=== PATIENT | male | born 1965 | race African-American/Black ===

== ENCOUNTER 2024-11-09 15:37 | Emergency (ER) | payer MEDICAID ==
[~2024-11-09] VITALS: Ht 172.7 cm; Wt 70.0 kg
[2024-11-09 15:44] VITALS: BP 135/91; TEMP 37.2; O2SAT 100
[2024-11-09 16:03] VITALS: PULSE 106; RESP 18; O2SAT 100
[2024-11-09] MEDS ORDERED: DIATR MEGLU/DIATRIZOATE SOLN 30ML PO ONE (20:00)
[2024-11-09] MEDS ORDERED: DIATR MEGLU/DIATRIZOATE SOLN 30ML ONE (20:06)
== END 2024-11-09 21:46 | disposition home or self-care (01) ==
LOC: ER 15:37
DX: K94.23 Gastrostomy malfunction (principal)
CPT/HCPCS: 99284; 43762; 74018; Q9963; 99283